=== PATIENT | male | born 1965 | race Caucasian/White ===

== ENCOUNTER 2017-03-04 12:36 | Emergency (ER) | payer OTHER, SELFPAY ==
[2017-03-04 13:08] VITALS: O2SAT 97
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
[2017-03-04] MEDS ORDERED: Sodium Chloride 0.9% 1000 ML 1,000 ML IV STA (13:30)
[2017-03-04] MEDS ORDERED: Ativan 2 MG/1 ML VIAL IV ONE (13:30)
[2017-03-04 13:52] LABS: BASOPHIL % 0.1 % (0.0-0.4); Eosinophil % 0.6 % (0.00-5.0); Granulocytes % 76.9 % (36.0-66.0); Lymphocytes % 14.1 % (24.0-44.0); Mean Cell Volume 91.2 fl (78-100); Mean Corpuscular Hemoglobin 31.3 pg (26-32); Mean Platelet Volume 11.6 fl (6-9.5); Monocytes % 8.3 % (0.0-12.0); Platelet Count 244 K/mm3 (150-450); Red Blood Count 4.19 M/mm3 (4.1-5.6); Red Cell Distribution Width 12.5 % (11.5-14.0); White Blood Count 10.6 K/mm3 (4.0-10.5)
[2017-03-04] MEDS ORDERED: Ativan 2 MG/1 ML VIAL ONE (13:59)
[2017-03-04] MEDS ORDERED: Sodium Chloride 0.9% 1000 ML 1,000 ML ONE (14:00)
[2017-03-04 14:13] LABS: Bilirubin NEGATIVE (NEGATIVE); Blood NEGATIVE Ery/ul (0-5); COMPLETE URINE MICROSCOPIC? YES; Collection Type VOID; Epithelial Cells RARE /HPF (FEW); Glucose TRACE mg/dL (NEGATIVE); Leukocyte Esterase NEGATIVE (NEGATIVE); Mucus MANY /HPF (NEGATIVE); WBC 0-2 /HPF (0-5)
[2017-03-04 14:14] LABS: ACETAMINOPHEN < 2.0 ug/ml (10-30); ADD URINE CULTURE? NO (NO); ALBUMIN 3.6 g/dL (3.4-5.0); ALKALINE PHOSPHATASE 100 U/L (46-116); ANION GAP 15.2 MEQ/L (5-15); BLOOD UREA NITROGEN 17 mg/dL (9-20); Bacteria FEW /HPF (NEGATIVE); CHLORIDE 101 mEq/L (98-107); Carbon Dioxide 25.3 mEq/L (21-32); ETHYL ALCOHOL < 0.010 % (0.00-0.01); Glucose 102 MG/DL (70-110); Potassium 3.1 mEq/L (3.5-5.1); SGOT/AST 49 U/L (15-37); SGPT/ALT 29 U/L (12-78); SODIUM 138 mEq/L (136-145); Total Protein 8.1 gm/dL (6.4-8.2)
[2017-03-04] MEDS ORDERED: Klor Con 10 MEQ PO ONE ×2 (14:34→15:06)
[2017-03-04 16:25] VITALS: BP 128/64; PULSE 116
== END 2017-03-04 16:36 | disposition home or self-care (01) ==
LOC: ED 12:36
DX: F15.10 Other stimulant abuse, uncomplicated (principal); F22 Delusional disorders; R45.1 Restlessness and agitation
CPT/HCPCS: 36000; 36415; 80053; 80307; 81000; 85025; 90791; 93005; 93041; 96360; 96374; 99284; G0481; J2060; Q3014; A9270-GY